=== PATIENT | male | born 1995 | race Caucasian/White ===

== ENCOUNTER 2021-04-03 07:34 | Emergency (ER) | payer SELFPAY ==
[~2021-04-03] VITALS: Ht 182.8 cm; Wt 77.0 kg
[2021-04-03] MEDS ORDERED: KETOROLAC 30 MG/ML VIAL IVP STA (07:42)
[2021-04-03] MEDS ORDERED: NS IV 1000 ML 1,000 ML IV ONE (07:45)
--- NOTE | 2021-04-03 08:04 | ED General ---
General Chief Complaint: Psych/Social Disorder Stated Complaint: SEIZURE Nursing Triage Note: PT BROUGHT IN BY [facility] FROM HOME WITH COMPLAINT OF ANXIETY/STRESS INDUCED SEIZURE. PTS WHOLE BODY LOCKS UP, BUT HE STAYS A&O. PT WAS GIVEN 2MG OF IV ATIVAN BY EMS. PT IS RELAXED AND CALM ON ARRIVAL TO ER. STATES HE NORMALLY USES MEDICAL MARIJUANA, BUT HAS BEEN OUT THE LAST TWO DAYS. RECENTLY DIAGNOSED WITH SCHIZOPHRENIA. Nursing Sepsis Screen: No Definite Risk Source of Information: Patient Exam Limitations: No Limitations History of Present Illness Date Seen by Provider: April 03, 2021 Time Seen by Provider: 07:35 Initial Comments Here by EMS with report of markedly increased anxiety and stress which causes his stress-induced shaking or seizures. He usually uses medical marijuana to help out with his anxiety and these problems but he is out of that. He is due to go get some more today. States over the last 24 hours she has had markedly increased stress and then approximately 10 minutes prior to EMS call (about 30 minutes ago) he started having the shaking episodes. EMS arrived on scene and did initiate IV and gave Ativan 2 mg IV which helped significantly. Patient is awake and alert and not shaking. Does complain of muscle aches for shaking everywhere. Does have history of depression as well as recent diagnosis of schizophrenia. Timing/Duration: 24 Hours, Getting Worse, Other (Better now after EMS treatment) Severity: Moderate Associated Systoms: No Chest Pain, No Cough, No Fever/Chills, No Nausea/Vomiting, No Shortness of Air, No Weakness Allergies and Home Medications Allergies Coded Allergies: Penicillins (Verified Allergy, Unknown, 04/03/21) Patient Home Medication List Home Medication List Reviewed: Yes Review of Systems Review of Systems Constitutional: see HPI; No chills, No fever EENTM: no symptoms reported Respiratory: no symptoms reported Cardiovascular: no symptoms reported Gastrointestinal: No nausea, No vomiting Musculoskeletal: muscle pain Skin: no symptoms reported Psychiatric/Neurological: See HPI, Anxiety Past [id number]-[id number] Hx Past Med/Social Hx: Reviewed Nursing Past Med/Soc Hx Patient Social History Alcohol Use: Occasionally Uses Drug of Choice: medical marijuana Smoking Status: Current Everyday Smoker Type Used: Cigarettes Recent Infectious Disease Expo: No Recent Hopitalizations: No Immunizations Up To Date Tetanus Booster (TDap): Unknown Seasonal Allergies Seasonal Allergies: No Past Medical History Surgeries: Yes Adenoidectomy, Appendectomy, Tonsillectomy Respiratory: No Cardiac: No Neurological: No (stress induced seizures) Genitourinary: No Gastrointestinal: No Musculoskeletal: No Endocrine: No HEENT: No Cancer: No Psychosocial: Yes (stress induced seizures) ADD/ADHD, Anxiety, Schizophrenia, Depression Integumentary: No Blood Disorders: No Family Medical History Reviewed Nursing Family Hx Physical Exam Vital Signs Vital Signs - First Documented 04/03/21 07:34 Pulse 72 Resp 16 B/P (MAP) 157/89 (111) Pulse Ox 97 O2 Delivery Room Air Capillary Refill : Less Than 3 Seconds Height, Weight, BMI Height: '" Weight: lbs. oz. kg; 23.00 BMI Method: General Appearance: No Apparent Distress, WD/WN HEENT: PERRL/EOMI, Pharynx Normal Neck: Non Tender, Supple Respiratory: Lungs Clear, Normal Breath Sounds Cardiovascular: Regular Rate, Rhythm, No Murmur Gastrointestinal: Non Tender, Soft Back: Normal Inspection, No CVA Tenderness, No Vertebral Tenderness Extremity: Normal Range of Motion, Non Tender Neurologic/Psychiatric: Alert, Oriented x3 Skin: Normal Color, Warm/Dry Progress/Results/Core Measures Suspected Sepsis Recent Fever Within 48 Hours: No Infection Criteria Present: None New/Unexplained Altered Menta: No Sepsis Screen: No Definite Risk SIRS Temperature: Pulse: 72 Respiratory Rate: 16 Laboratory Tests 04/03/21 07:38: White Blood Count 10.1 Blood Pressure 157 /89 Mean: 111 Laboratory Tests 04/03/21 07:38: Creatinine 0.76, Platelet Count 214, Total Bilirubin 0.6 Results/Orders Lab Results Laboratory Tests Test 04/03/21 07:38 Range/Units White Blood Count 10.1 4.3-11.0 10^3/uL Red Blood Count 5.32 4.30-5.52 10^6/uL Hemoglobin 16.3 13.3-17.7 g/dL Hematocrit 48 40-54 % Mean Corpuscular Volume 91 80-99 fL Mean Corpuscular Hemoglobin 31 25-34 pg Mean Corpuscular Hemoglobin Concent 34 32-36 g/dL Red Cell Distribution Width 13.0 10.0-14.5 % Platelet Count 214 130-400 10^3/uL Mean Platelet Volume 10.8 9.0-12.2 fL Immature Granulocyte % (Auto) 0 % Neutrophils (%) (Auto) 62 42-75 % Lymphocytes (%) (Auto) 29 12-44 % Monocytes (%) (Auto) 9 0-12 % Eosinophils (%) (Auto) 1 0-10 % Basophils (%) (Auto) 0 0-10 % Neutrophils # (Auto) 6.2 1.8-7.8 10^3/uL Lymphocytes # (Auto) 2.9 1.0-4.0 10^3/uL Monocytes # (Auto) 0.9 0.0-1.0 10^3/uL Eosinophils # (Auto) 0.1 0.0-0.3 10^3/uL Basophils # (Auto) 0.0 0.0-0.1 10^3/uL Immature Granulocyte # (Auto) 0.0 0.0-0.1 10^3/uL Sodium Level 139 135-145 MMOL/L Potassium Level 3.5 L 3.6-5.0 MMOL/L Chloride Level 103 98-107 MMOL/L Carbon Dioxide Level 26 21-32 MMOL/L Anion Gap 10 5-14 MMOL/L Blood Urea Nitrogen 11 7-18 MG/DL Creatinine 0.76 0.60-1.30 MG/DL Estimat Glomerular Filtration Rate > 60 BUN/Creatinine Ratio 14 Glucose Level 88 70-105 MG/DL Calcium Level 9.2 8.5-10.1 MG/DL Corrected Calcium 8.5-10.1 MG/DL Total Bilirubin 0.6 0.1-1.0 MG/DL Aspartate Amino Transf (AST/SGOT) 14 5-34 U/L Alanine Aminotransferase (ALT/SGPT) 13 0-55 U/L Alkaline Phosphatase 55 40-136 U/L Total Creatine Kinase 116 30-200 U/L Total Protein 7.1 6.4-8.2 GM/DL Albumin 4.6 H 3.2-4.5 GM/DL My Orders Orders - LEXIE THOMPSON MD Ed Iv/Invasive Line Start (04/03/21 07:42) Ns Iv 1000 Ml (Sodium Chloride 0.9%) (04/03/21 07:45) Ketorolac Injection (Toradol Injection) (04/03/21 07:42) Cbc With Automated Diff (04/03/21 07:42) Comprehensive Metabolic Panel (04/03/21 07:42) Creatine Kinase (04/03/21 07:42) Medications Given in ED Current Medications Medications Dose Ordered Sig/Gareth Route Start Time Stop Time Status Last Admin Dose Admin Sodium Chloride 1,000 ml @ 0 mls/hr Q0M ONCE IV 04/03/21 07:45 04/03/21 07:46 DC 04/03/21 08:05 0 MLS/HR Vital Signs/I&O 04/03/21 07:34 Pulse 72 Resp 16 B/P (MAP) 157/89 (111) Pulse Ox 97 O2 Delivery Room Air Capillary Refill : Less Than 3 Seconds Blood Pressure Mean: 111 Progress Note : Progress Note Seen and evaluated. IV, labs and normal saline 1 L bolus ordered. Toradol 30 mg IV. Monitor patient. 0851: Labs reviewed and no significant findings. Patient feels much better. She feels safe for discharge home and I agree. Discharged home with return precautions. Patient verbalized understanding of instructions and agreement with plan. Departure Impression Primary Impression: Anxiety Disposition: 01 HOME, SELF-CARE Condition: Improved Departure-Patient Inst. Decision time for Depature: 08:51 Patient Instructions: Anxiety, Adult (DC) Add. Discharge Instructions: All discharge instructions reviewed with patient and/or family. Voiced understanding. Continue home medications as previously prescribed. Follow-up with your doctor in a few days for recheck. Return for worse pain, weakness, seizures, vomiting or other concerns as needed. Drink plenty of fluids and get plenty of rest. LEXIE THOMPSON MD April 03, 2021 08:04
[2021-04-03 08:12] LABS: BASOPHILS % (AUTO) 0 % (0-10); EOSINOPHILS # (AUTO) 0.1 10^3/uL (0.0-0.3); EOSINOPHILS % (AUTO) 1 % (0-10); HEMATOCRIT 48 % (40-54); HEMOGLOBIN 16.3 g/dL (13.3-17.7); LYMPHOCYTES # (AUTO) 2.9 10^3/uL (1.0-4.0); LYMPHOCYTES % (AUTO) 29 % (12-44); MEAN CORPUSCULAR HEMOGLOBIN 31 pg (25-34); MEAN CORPUSCULAR HGB CONC 34 g/dL (32-36); MEAN CORPUSCULAR VOLUME 91 fL (80-99); MEAN PLATELET VOLUME 10.8 fL (9.0-12.2); MONOCYTES # (AUTO) 0.9 10^3/uL (0.0-1.0); MONOCYTES % (AUTO) 9 % (0-12); NEUTROPHILS # (AUTO) 6.2 10^3/uL (1.8-7.8); NEUTROPHILS % (AUTO) 62 % (42-75); PLATELET COUNT 214 10^3/uL (130-400); WHITE BLOOD COUNT 10.1 10^3/uL (4.3-11.0)
[2021-04-03 08:20] LABS: ALBUMIN 4.6 GM/DL (3.2-4.5); CHLORIDE 103 MMOL/L (98-107); POTASSIUM 3.5 MMOL/L (3.6-5.0)
[2021-04-03 08:21] LABS: SODIUM 139 MMOL/L (135-145)
[2021-04-03 08:22] LABS: CALCIUM 9.2 MG/DL (8.5-10.1)
[2021-04-03 08:23] LABS: GLUCOSE 88 MG/DL (70-105); TOTAL PROTEIN 7.1 GM/DL (6.4-8.2)
[2021-04-03 08:24] LABS: CARBON DIOXIDE 26 MMOL/L (21-32)
[2021-04-03 08:25] LABS: BILIRUBIN,TOTAL 0.6 MG/DL (0.1-1.0)
[2021-04-03 08:26] LABS: ALKALINE PHOSPHATASE 55 U/L (40-136); CREATININE SERUM 0.76 MG/DL (0.60-1.30); GFR ESTIMATED > 60
[2021-04-03 08:27] LABS: BUN/CREATININE RATIO 14
[2021-04-03 08:43] LABS: ALANINE AMINOTRANSFERASE 13 U/L (0-55); CREATINE KINASE 116 U/L (30-200)
[2021-04-03 09:33] VITALS: BP 144/72
== END 2021-04-03 09:33 | disposition home or self-care (01) ==
LOC: ER 07:37
DX: F41.9 Anxiety disorder, unspecified (principal); F17.210 Nicotine dependence, cigarettes, uncomplicated
CPT/HCPCS: 36415; 80053; 82550; 85025